=== PATIENT | female | born 1990 | race Caucasian/White ===

== ENCOUNTER 2016-09-15 16:56 | Emergency (ER) | payer SELFPAY ==
[2016-09-15] MEDS ORDERED: DIPH/PERTUSS(ACELL)/TETANUS VAC/PF 0.5 ML SYR (>=10YO) IM ONE (17:03)
--- NOTE | 2016-09-15 17:04 | ER Document Report ---
ED Medical Screen (RME) - General Stated Complaint: RIGHT ARM DOG BITE Mode of Arrival: Ambulatory Information source: Patient Notes: Patient presents to the emergency department with dog bite to her right dorsal hand and right fifth digit. Patient reports she is breaking of the dog bite. Reports dog vaccine up-to-date. She's not sure when she had her last tetanus. No active bleeding I have greeted and performed a rapid initial assessment of this patient. A comprehensive ED assessment and evaluation of the patient, analysis of test results and completion of the medical decision making process will be conducted by additional ED providers.
[2016-09-15] MEDS ORDERED: AMPICILLIN SOD/SULBACTAM 3 GM VIAL IV ONE (18:03)
[2016-09-15] MEDS ORDERED: ONDANSETRON 4 MG TAB.RAPDIS PO ONE (18:04)
[2016-09-15] MEDS ORDERED: HYDROMORPHONE HCL INJ/PF 2 MG/ML AMPULE IV ONE (18:04)
--- NOTE | 2016-09-15 18:14 | ER Document Report ---
ED Animal Bite - General Chief Complaint: Dog Bite Stated Complaint: RIGHT ARM DOG BITE Mode of Arrival: Ambulatory Information source: Patient TRAVEL OUTSIDE OF THE [place] IN LAST 30 DAYS: No - HPI Location of injury: RUE Severity of injury: Bitten Onset: Just prior to arrival - APPROX. 2 HOURS PRIOR TO EVAL. BY THIS PROVIDER Quality of pain: Dull, Throbbing Context of attack: Animals fighting Summary of what happened: TRIED TO BREAK UP FIGHT BETWEEN PATIENT'S DOG AND ONE BELONGING TO FRIEND/NEIGHBOR. Type of animal: Dog Appearance of animal: Appeared well Animal's immunizations: UTD Animal captured or known: Yes Animal control notified: Yes Animal control form completed: Yes - Related Data Allergies/Adverse Reactions: No Known Allergies Allergy (Unverified 09/15/16 17:05) Past Medical History - General Information source: Patient - Social History Smoking Status: Never Smoker Chew tobacco use (# tins/day): No Frequency of alcohol use: Heavy Drug Abuse: None Lives with: Spouse/Significant other Family History: Reviewed & Not Pertinent Patient has suicidal ideation: No Patient has homicidal ideation: No - Past Medical History Cardiac Medical History: Reports: None Pulmonary Medical History: Reports: None EENT Medical History: Reports: None Neurological Medical History: Reports: None Endocrine Medical History: Reports: None Renal/ Medical History: Reports: None. Denies: Hx Peritoneal Dialysis Malignancy Medical History: Reports: None GI Medical History: Reports: None Musculoskeltal Medical History: Reports None Psychiatric Medical History: Reports: None Surgical Hx: Negative Review of Systems - Review of Systems Constitutional: No symptoms reported EENT: No symptoms reported Cardiovascular: No symptoms reported Respiratory: No symptoms reported Gastrointestinal: No symptoms reported Genitourinary: No symptoms reported Female Genitourinary: No symptoms reported Musculoskeletal: See HPI Skin: See HPI Neurological/Psychological: No symptoms reported Physical Exam - Vital signs Vitals: Temp Pulse Resp BP Pulse Ox 98.3 F 87 18 140/94 H 99 09/15/16 17:03 09/15/16 17:03 09/15/16 17:03 09/15/16 17:03 09/15/16 17:03 Interpretation: Hypertensive. No: Tachycardic, Tachypneic, Febrile - General General appearance: Appears well, Alert In distress: None - HEENT Head: Normocephalic Eyes: Normal Ears: Normal Nasal: Normal Mouth/Lips: Normal Mucous membranes: Normal - Respiratory Respiratory status: No respiratory distress - Cardiovascular Rhythm: Regular - Extremities General upper extremity: No: Normal inspection - R. HAND (SEE BELOW) General lower extremity: Normal inspection Hand: Tender - OVER METATARSALS # 4 AND 5, Laceration - DURSUM, OVER 5TH MT, 2 cm LENGTH, Swelling, Other - HYPESTHESIA, DORSUM OF HAND DISTAL TO WOUND.. No: Tendon deficit - Neurological Neuro grossly intact: Yes Cognition: Normal Orientation: AAOx4 - Psychological Associated symptoms: Normal affect, Normal mood - Skin Skin Temperature: Warm Skin Moisture: Dry Skin Color: Normal Skin Turgor: Elastic Skin irregularity: Laceration - SEE ABOVE Course - Vital Signs Vital signs: Temp Pulse Resp BP Pulse Ox 98.3 F 87 18 140/94 H 99 09/15/16 17:03 09/15/16 17:03 09/15/16 17:03 09/15/16 17:03 09/15/16 17:03 - Diagnostic Test Radiology reviewed: Image reviewed, Reports reviewed - Consults DR. MENDEZ Time consulted: 19:00 Reason for consultation: 09/15/16 19:04 AGREES W/ TREATMENT PLAN, WILL F/U IF COMPLICATIONS ARISE. Procedures - Additional Procedures WOUND TREATMENT Time performed: 18:55 Additional Procedures: Other - WOUND IRRIGATION Notes: 09/15/16 19:07 Wounds were irrigated copiously with sterile saline under low pressure. Total volume of irrigation was approximately 400 mL. Wounds were spread and visually explored gently. No deep structures were visualized. After irrigation and exploration a sterile bandage was placed by PCT. Discharge - Discharge Clinical Impression: Dog bite of hand Qualifiers: Encounter type: initial encounter Laterality: right Qualified Code(s): S61.451A - Open bite of right hand, initial encounter; W54.0XXA - Bitten by dog , initial encounter Condition: Stable Disposition: HOME, SELF-CARE Instructions: Animal Bites ([facility]), Elevate the Injury ([facility]), IV Antibiotics ([facility] ), Augmentin ([facility]), Epsom Salt Soaks ([facility]), Oral Narcotic Medication ([facility]) Additional Instructions: MEDS DIRECTED. KEEP HAND ELEVATED MUCH POSSIBLE. SOAK WOUND AND CHANGE BANDAGE DIRECTED FOUR TIMES A DAY. RETURN TO E.R. TOMORROW (SATURDAY) FOR WOUND CHECK. Prescriptions: Hydrocodone/Acetaminophen [[place] 5-325 mg Tablet] 1 tab PO Q4HP PRN #14 tablet PRN Reason: For Pain Amox Tr/Potassium Clavulanate [Augmentin 500-125 Tablet] 1 tab PO TID #20 tablet
[2016-09-15 19:38] VITALS: BP 130/77
== END 2016-09-15 20:02 | disposition home or self-care (01) ==
LOC: ER 16:56
DX: S61.451A Open bite of right hand, initial encounter (principal); W54.0XXA Bitten by dog, initial encounter; Y92.007 Garden or yard of unspecified non-institutional (private) residence as the place of occurrence of the external cause; Z23 Encounter for immunization
CPT/HCPCS: 99283; 90471; 96375; 96365; 73130; 90715; S0119; J0295; J1170

== ENCOUNTER 2018-11-08 06:03 | Inpatient (IN) | payer MEDICAID ==
[2018-11-08] MEDS ORDERED: OXYTOCIN/NORMAL SALINE 20 UNIT/1,000 ML RTUINJ ONE (06:36)
[2018-11-08] MEDS ORDERED: LIDOCAINE 1% INJ-PF (10 MG/ML) 30 ML SDV ONE (06:36)
[2018-11-08] MEDS ORDERED: MISOPROSTOL 0.2 MG TABLET ONE (06:36)
[2018-11-08 06:42] LABS: APPEARANCE,URINE CLOUDY; BILIRUBIN,URINE NEGATIVE (NEGATIVE); COLOR,URINE YELLOW; GLUCOSE, URINE NEGATIVE (NEGATIVE); KETONES,URINE NEGATIVE (NEGATIVE); LEUKOCYTE ESTERASE,URINE SMALL (NEGATIVE); NITRITE,URINE NEGATIVE (NEGATIVE); PROTEIN,URINE NEGATIVE (NEGATIVE); URINE SPECIFIC GRAVITY 1.021; UROBILINOGEN,URINE NEGATIVE mg/dL (<2.0)
[2018-11-08] MEDS: RINGERS SOLUTION,LACTATED 1,000 ML IV PRN ×2 (06:49→07:27)
[2018-11-08 06:57] LABS: URINE AMPHETAMINES SCREEN NEGATIVE; URINE BARBITURATES SCREEN NEGATIVE; URINE BENZODIAZEPINES SCREEN NEGATIVE; URINE COCAINE SCREEN NEGATIVE; URINE MARIJUANA (THC) SCREEN NEGATIVE; URINE METHADONE SCREEN NEGATIVE; URINE PHENCYCLIDINE SCREEN NEGATIVE
[2018-11-08] MEDS ORDERED: EPHEDRINE SULFATE INJ 50 MG/1 ML AMPULE ONE (07:21)
[2018-11-08] MEDS ORDERED: FENTANYL/BUPIVACAINE/NS/PF 300 MCG/150 ML RTUINJ EPI ONE (07:22)
[2018-11-08] MEDS ORDERED: BUPIVACAINE HCL 0.25 % INJ/PF (2.5 MG/1 ML) 30 ML VIAL ONE (07:22)
[2018-11-08 07:31] LABS: ABSOLUTE LYMPHOCYTES (AUTO) 1.2 10^3/uL (0.5-4.7); ABSOLUTE MONOCYTES (AUTO) 0.9 10^3/uL (0.1-1.4); ABSOLUTE NEUT (AUTO) 10.5 10^3/uL (1.7-8.2); BASOPHILS % (AUTO) 0.2 % (0-2); EOSINOPHILS % (AUTO) 0.3 % (0-6); HEMATOCRIT 35.3 % (36.0-47.0); HEMOGLOBIN 11.8 g/dL (12.0-15.5); LYMPHOCYTES % (AUTO) 9.5 % (13-45); MEAN CORPUSCULAR HEMOGLOBIN 27.8 pg (27.0-33.4); MEAN CORPUSCULAR HGB CONC 33.3 g/dL (32.0-36.0); MEAN CORPUSCULAR VOLUME 83 fl (80-97); MONOCYTES % (AUTO) 7.4 % (3-13); PLATELET COUNT 222 10^3/uL (150-450); RED BLOOD COUNT 4.23 10^6/uL (3.72-5.28); SEGMENTED NEUTROPHILS % (AUTO) 82.6 % (42-78); TOTAL CELLS COUNTED % (AUTO) 100 %; WHITE BLOOD COUNT 12.8 10^3/uL (4.0-10.5)
--- NOTE | 2018-11-08 07:58 | Admission Physical ---
Datetime Report Generated by CPN: 11/08/2018 07:58 CURRENT ADMISSION Chief Complaint: Uterine Contractions Indication for Induction: Not Applicable Admit Impression : Term, Intrauterine Admit Plan: Initiate Labor Protocol ALLERGIES Medication Allergies: No Medication Allergies: No Known Allergies (09/15/2016) Latex: No Latex Allergies OBSTETRICAL HISTORY EDC: 11/12/2018 00:00 : 2 Para: 0 SAB: 1 Livin Gestational Diabetes: Yes Rh Sensitization: No Incompetent Cervix: No NYA: No Infertility: No ART Treatment: No Uterine Anomaly: No IUGR: No Hx Previous C/S: No Macrosomia: No Hx Loss/Stillborn: No PIH: No Hx : No Placenta Previa/Abruption: No Depression/PP Depression: No PTL/PROM: No Post Hemorrhage: No Obstetrical History Comments: G1: SAB 7 weeks G2: GDM- diet controlled, FOB not involved SEE RECORDS Alcohol: No Marijuana : No Cocaine: No Other Illicit Drugs: No Cigarettes: Former Smoker. 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 Heart Disease: No Hosp/Surgery: No Autoimmune Disorder: No Anesthetic Complications: No Kidney Disease: No Abnormal Pap Smear: No Neuro/Epilepsy: No Psychiatric Disorders: No Other Medical Diseases: No Hepatitis/Liver Disease: No Significant Family History: No Varicosities/Phlebitis: No Trauma/Violence : No Thyroid Dysfunction: No INFECTIOUS HISTORY Gonorrhea: No Genital Herpes: No Chlamydia: Yes Tuberculosis: No Syphilis: No Hepatitis: No HIV/AIDS Exposure: No Rash or Viral Illness: No HPV: No Infectious History Comments: + chlam treated HD 03/22 nora 05/11 PHYSICAL EXAM General: Normal HEENT: Normal Neurologic: Normal Thyroid: Normal Heart: Normal Lungs: Normal Breast: Deferred Back: Normal Abdomen: Normal Genitourinary Exam: Normal Extremities: Normal DTRs: Normal Pelvic Type: Adequate FETUS A EGA: 39.3 PLANS FOR LABOR AND DELIVERY Pain Management: Epidural Feeding Preference: Breast Circumcision: Yes INFORMED CONSENT Signature: with User ID: [email or web address]
[2018-11-08] MEDS ORDERED: OXYTOCIN/NORMAL SALINE 20 UNIT/1,000 ML RTUINJ IV PRN (09:34)
[2018-11-08] MEDS ORDERED: LIDOCAINE 2% INJ-PF (20 MG/ML) 10 ML AMPUL ONE (11:51)
[2018-11-08] MEDS ORDERED: DIPHENHYDRAMINE HCL 50 MG/ML VIAL ONE (11:53)
[2018-11-08] MEDS ORDERED: DIPHENHYDRAMINE HCL 50 MG/ML VIAL IV ONE (11:54)
[2018-11-08] MEDS ORDERED: ACETAMINOPHEN WITH CODEINE #3 TABLET PO PRN ×2 (17:13)
[2018-11-08] MEDS ORDERED: DIBUCAINE 1% OINTMENT 56 GM TP PRN (17:13)
[2018-11-08] MEDS ORDERED: ZOLPIDEM TARTRATE 5 MG TABLET PO PRN (17:13)
[2018-11-08] MEDS ORDERED: DIPH/PERTUSS(ACELL)/TETANUS VAC/PF 0.5 ML SYR (>=10YO) IM PRN (17:13)
[2018-11-08] MEDS ORDERED: MEASLES,MUMPS&RUBELLA VACC/PF 0.5 ML VIAL SUBCUT PRN (17:13)
[2018-11-08] MEDS ORDERED: BENZOCAINE/MENTHOL AEROSOL SPRAY 56 ML TOP PRN (17:13)
[2018-11-08] MEDS: FERROUS SULFATE 325 MG TABLET PO SCH (18:00)
[2018-11-08] MEDS: DOCUSATE SODIUM 100 MG CAPSULE PO SCH (18:01)
[2018-11-08] MEDS: IBUPROFEN 800 MG TABLET PO SCH (22:05)
[2018-11-09] MEDS: IBUPROFEN 800 MG TABLET PO SCH ×3 (06:00→21:27)
[2018-11-09 06:04] LABS: HEMATOCRIT 29.7 % (36.0-47.0); HEMOGLOBIN 9.9 g/dL (12.0-15.5); MEAN CORPUSCULAR HEMOGLOBIN 27.9 pg (27.0-33.4); MEAN CORPUSCULAR HGB CONC 33.2 g/dL (32.0-36.0); MEAN CORPUSCULAR VOLUME 84 fl (80-97); PLATELET COUNT 211 10^3/uL (150-450); RED BLOOD COUNT 3.53 10^6/uL (3.72-5.28); RED CELL DISTRIBUTION WIDTH 16.2 % (11.5-14.0); WHITE BLOOD COUNT 16.6 10^3/uL (4.0-10.5)
--- NOTE | 2018-11-09 09:24 | PDOC PROGRESS REPORT ---
Subjective-OB Progress Note for:: 11/09/18 - PP #1, doing well, O+, Rubella non-immune. Physical Exam (OB) Vital Signs: Temp Pulse Resp BP Pulse Ox 98.0 F 94 16 120/72 100 11/08/18 19:20 11/08/18 19:20 11/08/18 19:20 11/08/18 19:20 11/08/18 19:20 Intake & Output 11/08/18 11/09/18 11/10/18 06:59 06:59 06:59 Intake Total 1379 Balance 1379 Weight 88.9 kg - General General Appearance: Appears well, Alert In distress: None - PIH/Pre-Eclampsia Clonus: Negative Headache: Absent Epigastric Pain: No Visual Changes: No - Lochia Lochia Amount: Small 10-25 ml Lochia Color: Rubra/Red - Abdomen Description: Soft Hernia Present: No Fundal Description: Firm, Midline Fundal Height: u/u - u/2 - Respiratory Respiratory Status: No respiratory distress - Abdominal Inspection: Normal Distension: No distension Tenderness: Nontender - Genitourinary Genitourinary Note: voiding - Extremities Upper extremity: Normal inspection Lower extremities: Normal inspection - Neurological Cognition: Normal Orientation: AAOx4 - Psychological Associated symptoms: Normal affect, Normal mood - Skin Skin Temperature: Warm Skin Moisture: Dry Objective-Diagnostic Laboratory: 11/09/18 05:51 11/09/18 05:51 WBC 16.6 H RBC 3.53 L Hgb 9.9 L Hct 29.7 L MCV 84 MCH 27.9 MCHC 33.2 RDW 16.2 H Plt Count 211 Assessment and Plan(PN) - Assessment and Plan (1) (normal spontaneous vaginal delivery) Is this a current diagnosis for this admission?: Yes - Time Spent with Patient Time with patient: Less than 15 minutes Medications reviewed and adjusted accordingly: Yes - Disposition Anticipated Discharge: Home Within: within 24 hours
[2018-11-09] MEDS: FERROUS SULFATE 325 MG TABLET PO SCH ×2 (09:51→17:32)
[2018-11-09] MEDS: SENNOSIDES/DOCUSATE 8.6-50 MG 1 EACH TABLET PO SCH (09:51)
[2018-11-09] MEDS: PRENATAL VITAMIN W DHA CAPSULE PO SCH (09:51)
[2018-11-09] MEDS: DOCUSATE SODIUM 100 MG CAPSULE PO SCH ×2 (09:51→17:32)
[2018-11-10] MEDS: IBUPROFEN 800 MG TABLET PO SCH (05:40)
[2018-11-10 08:00] VITALS: BP 118/67
--- NOTE | 2018-11-10 09:08 | PDOC DISCHARGE SUMMARY ---
Final Diagnosis Discharge Date: 11/10/18 - Final Diagnosis (1) (normal spontaneous vaginal delivery) Is this a current diagnosis for this admission?: Yes Discharge Data - Discharge Medication Home Medications: Iron 1 tab PO DAILY 11/08/18 Prenat 115/Iron Fum/Folic/Dss [ 19 Tablet] 1 tab PO DAILY 11/08/18 Reason(s) for Admission: Onset of Labor Procedures: NST Intrapartum Procedure(s): Spontaneous Vaginal Delivery Complication(s): Laceration-Perineal Laceration-Degree: 2nd - Diagnosis Test Laboratory: Temp Pulse Resp BP Pulse Ox 98.4 F 72 16 118/67 100 11/10/18 07:50 11/10/18 07:50 11/10/18 07:50 11/10/18 07:50 11/10/18 07:50 11/08/18 11/08/18 11/09/18 06:10 07:16 05:51 RBC 4.23 3.53 L Hgb 11.8 L 9.9 L Hct 35.3 L 29.7 L Urine Opiates Screen NEGATIVE - Discharge information/Instructions Discharge Activity: Balance Activity w/Rest, Pelvic Rest Discharge Diet: Regular Disposition: HOME, SELF-CARE Follow up with: [facility] in: 4, Weeks
[2018-11-10] MEDS: DOCUSATE SODIUM 100 MG CAPSULE PO SCH (10:06)
[2018-11-10] MEDS: FERROUS SULFATE 325 MG TABLET PO SCH (10:06)
[2018-11-10] MEDS: PRENATAL VITAMIN W DHA CAPSULE PO SCH (10:06)
[2018-11-10] MEDS: SENNOSIDES/DOCUSATE 8.6-50 MG 1 EACH TABLET PO SCH (10:06)
--- NOTE | 2018-11-19 08:18 | Delivery Summary ---
Del Sum A-C Datetime Report Generated by CPN: 11/19/2018 08:18 DELIVERY PERSONNEL DELIVERY PERSONNEL: [id number] Delivery Doctor:: Leanna Tompkins, DO Labor and Delivery Nurse:: Sparkle Adams RNC Labor and Delivery Nurse:: Angi Villalobos RN Sas Et[employer] Developer/PLANT UTILITIES ENGINEER: Suzannejose Fraga, ST MATERNAL INFORMATION Delivery Anesthesia: Epidural Medications After Delivery: Pitocin Drip 20 Units/1000ml NSS Maternal Complications: None Provider Comments: Infant delivered in OP position. LABOR SUMMARY EDC: 11/12/2018 00:00 No. Babies in Womb: 1 Labor Anesthesia: Epidural LABOR INFORMATION Onset of Labor: 11/07/2018 21:00 Complete Dilatation: 11/08/2018 13:36 Oxytocin: Augmentation Group B Beta Strep: neg Antibiotics # of Doses: 0 Steroids Given: None Reason Steroids Not Administered: Not Applicable MEMBRANES Membranes Rupture Method: Spontaneous Rupture of Membranes: 11/08/2018 09:50 Length of Rupture (hr): 4.62 Amniotic Fluid Color: Clear Amniotic Fluid Amount: Large Amniotic Fluid Odor: Normal STAGES OF LABOR Stage 1 hr: 16 Stage 1 min: 36 Stage 2 hr: 0 Stage 2 min: 51 Stage 3 hr: 0 Stage 3 min: 5 Total Time in Labor hr: 17 Total Time in Labor min: 32 VAGINAL DELIVERY Laceration #1: Vaginal Laceration Extension #1: Second Degree Laceration Repair: Yes Laceration Repair Note: 2-0 vicyrl, 3 figures of 8. Sponge Count Correct: Yes; Vaginal Sweep Performed Sharps Count Correct: Yes CSECTION DELIVERY Primary Indication: N/A Uterine Closure: N/A BABY A INFORMATION Infant Delivery Date/Time: 11/08/2018 14:27 Method of Delivery: Vaginal Born in Route : No Forceps: N/A Vacuum Extraction: N/A Shoulder Dystocia : No PRESENTATION/POSITION BABY A Presentation: Cephalic Presentation: Cephalic Presentation: Cephalic Cephalic Presentation: Vertex Vertex Position: Right Occipital Posterior PLACENTA INFORMATION BABY A Placenta Delivery Time : 11/08/2018 14:32 Placenta Method of Delivery: Spontaneous Placenta Status: Delivered SCORES BABY A Heart Rate 1 min: >100 bpm Resp Effort 1 min: Good Cry Reflex Irritability 1 min: Cough or Sneeze or Pulls Away Muscle Tone 1 min: Active Motion Color 1 min: Body [place], Extremities Blue SCORE 1 MIN: 9 Heart Rate 5 min: >100 bpm Resp Effort 5 min: Good Cry Reflex Irritability 5 min: Cough or Sneeze or Pulls Away Muscle Tone 5 min: Active Motion Color 5 min: Body [place], Extremities Blue SCORE 5 MIN: 9 INFANT INFORMATION BABY A Gestational Age at Delivery: 39.0 Gestational Status: Full Term- 39- 40.6 Weeks Infant Outcome : Liveborn Infant Condition : Stable Sex: Male IDENTIFICATION BABY A Infant Verification Date/Time: 11/08/2018 15:02 ID Band Number: [id number] Mother's Name Verified: Yes RN Verifying Infant: Ruiz JANE Villalobos Additional Verifying Personnel: Derian Daly RN CORD INFORMATION BABY A No. Cord Vessels: 3 Nuchal Cord : N/A Cord Blood Taken: Yes-For Eval (Mom's Blood Type - or O+) Infant Suction: Mouth; Nose ASSESSMENT BABY A Infant Complications: None Physical Findings at Delivery: Molding of the Head Respirations: Appears Normal Skin to Skin: Yes Skin to Skin: Yes Clamshell Operator/ALS Called : No Care By: Mary Jo Villalobos RN
== END 2018-11-10 13:51 | disposition home or self-care (01) | DRG 807 ==
LOC: LC 06:03 → LR 06:32 → 2S 16:50
PROVIDERS: ADMIT Obstetrics & Gynecology Gynecology; ATTEND Obstetrics & Gynecology Gynecology
PROC: 10E0XZZ Delivery of Products of Conception, External Approach (ICD-10-PCS; principal; 2018-11-08)
PROC: 0KQM0ZZ Repair Perineum Muscle, Open Approach (ICD-10-PCS; 2018-11-08)
PROC: 4A1HXCZ Monitoring of Products of Conception, Cardiac Rate, External Approach (ICD-10-PCS; 2018-11-08)
DX: O24.420 Gestational diabetes mellitus in childbirth, diet controlled (principal); Z37.0 Single live birth; O70.1 Second degree perineal laceration during delivery; Z87.891 Personal history of nicotine dependence; Z3A.39 39 weeks gestation of pregnancy
CPT/HCPCS: 36415; 80307; 81005; 82962; 85025; 85027; 86592; 86850; 86900; 86901; 90707; 90715; J1200; J2590; J3010; J3490